=== PATIENT | female | born 2000 | race Caucasian/White ===

== ENCOUNTER 2024-05-18 18:30 | Emergency (ER) | payer SELFPAY ==
[~2024-05-18] VITALS: Ht 173 cm; Wt 97.3 kg
[2024-05-18 18:48] VITALS: TEMP 98.7
[2024-05-18] MEDS ORDERED: Lidocaine 2% Viscous 15 ML UNIT DOSE MM ONE (19:30)
[2024-05-18] MEDS ORDERED: oxyCODONE Oral Soln 5 MG/5 ML UD PO ONE (19:30)
[2024-05-18] MEDS ORDERED: OXYCODONE H5 MG/5 ML PO (19:51)
[2024-05-18 20:00] VITALS: BP 109/80; PULSE 83
== END 2024-05-18 20:00 | disposition home or self-care (01) ==
LOC: COL.ER 18:30
DX: T18.128A Food in esophagus causing other injury, initial encounter (principal); W44.F3XA Food entering into or through a natural orifice, initial encounter